=== PATIENT | female | born 1975 | race Caucasian/White ===

== ENCOUNTER 2017-06-19 10:28 | Outpatient (CLI) | payer OTHER | END 2017-06-19 11:24 | disposition home or self-care (01) | LOC: MAMO-SONO 10:28 | DX: N60.11 Diffuse cystic mastopathy of right breast (principal); Z12.31 Encounter for screening mammogram for malignant neoplasm of breast; E07.9 Disorder of thyroid, unspecified ==

== ENCOUNTER 2018-06-04 11:33 | Outpatient (CLI) | payer OTHER | END 2018-06-04 15:11 | disposition home or self-care (01) | LOC: MRI 11:33 | DX: M25.561 Pain in right knee (principal); M25.562 Pain in left knee | CPT/HCPCS: 73721 ==

== ENCOUNTER 2019-01-20 10:04 | Outpatient (CLI) | payer OTHER | END 2019-01-20 14:26 | disposition home or self-care (01) | LOC: MAMO-SONO 10:04 | DX: Z12.31 Encounter for screening mammogram for malignant neoplasm of breast (principal); N60.11 Diffuse cystic mastopathy of right breast; N60.12 Diffuse cystic mastopathy of left breast ==

== ENCOUNTER 2021-09-04 12:29 | Outpatient (CLI) | payer OTHER | END 2021-09-04 12:42 | disposition home or self-care (01) | LOC: MAMO-SONO 12:29 | DX: Z12.31 Encounter for screening mammogram for malignant neoplasm of breast (principal); E04.1 Nontoxic single thyroid nodule ==

== ENCOUNTER 2022-10-08 14:16 | Outpatient (CLI) | payer OTHER | END 2022-10-08 14:55 | disposition home or self-care (01) | LOC: MAMO-SONO 14:16 | PROVIDERS: ATTEND Obstetrics & Gynecology | DX: N60.11 Diffuse cystic mastopathy of right breast (principal); Z12.31 Encounter for screening mammogram for malignant neoplasm of breast ==

== ENCOUNTER → 2023-05-16 | Outpatient (CLI) | payer OTHER | END | disposition home or self-care (01) | LOC: MRI 14:27 | PROVIDERS: ATTEND Physical Medicine & Rehabilitation | DX: M25.552 Pain in left hip (principal) | CPT/HCPCS: 73721 ==

== ENCOUNTER 2024-02-03 14:06 | Outpatient (CLI) | payer OTHER | END 2024-02-03 14:25 | disposition home or self-care (01) | LOC: MAMO-SONO 14:06 | PROVIDERS: ATTEND Obstetrics & Gynecology | DX: N60.11 Diffuse cystic mastopathy of right breast (principal) ==

== ENCOUNTER 2025-01-12 13:12 | Outpatient (CLI) | payer OTHER | END 2025-01-12 13:14 | disposition home or self-care (01) | LOC: NUCLEAR 13:12 | DX: M81.0 Age-related osteoporosis without current pathological fracture (principal) ==

== ENCOUNTER 2025-03-09 13:39 | Outpatient (CLI) | payer OTHER | END 2025-03-09 13:40 | disposition home or self-care (01) | LOC: MAMO-SONO 13:39 | PROVIDERS: ATTEND Pediatrics | DX: R92.8 Other abnormal and inconclusive findings on diagnostic imaging of breast (principal) ==

== ENCOUNTER 2025-03-25 08:14 | Outpatient (CLI) | payer OTHER | END 2025-03-25 08:24 | disposition home or self-care (01) | LOC: SONOGRAMA 08:14 | PROVIDERS: ATTEND Internal Medicine Gastroenterology | DX: R16.0 Hepatomegaly, not elsewhere classified (principal) ==